=== PATIENT | female | born 1970 | race African-American/Black ===

== ENCOUNTER 2019-02-17 07:57 | Emergency (ER) | payer SELFPAY ==
--- NOTE | 2019-02-17 08:19 | ED Physician Documentation ---
Sore Throat/Dental Pain - HISTORIAN Historian: patient - HPI Chief Complaint: Sore Throat Additional Information: Patient is a 48-year-old female who presents to the ER with c/o sore throat that started 3 days ago. Discomfort has increasingly gotten worse with fever and chills. She denies any shortness of breath- denies n/v/d. Onset: days ago (3) Context: Possible Infection Associated Symptoms: fever, chills, sore throat, moderate Worsened By: nothing Further Comments: no - ROS CONST: no problems CVS/RESP: none GI/: denies: nausea, vomiting MS/SKIN/LYMPH: muscle aches NEURO/PSYCH: none - PAST HX Past History: other (HTN) Other History: none Immunizations: UTD Allergies/Adverse Reactions: Allergies Allergy/AdvReac Type Severity Reaction Status Date / Time No Known Allergies Allergy Verified 02/17/19 08:19 Home Medications: Ambulatory Orders Medication Instructions Recorded Amoxicillin 500 mg PO BID #20 capsule 02/17/19 NK 02/17/19 - SOCIAL HX Smoking History: non-smoker Alcohol Use: none Drug Use: none - FAMILY HX Family History: No ED Results Lab/Radiology - Lab Results Lab Results: Rapid strept- positive - Orders Orders: ED Orders Category Date Time Status Rapid Strep [GRP A STREP SCREEN] Stat Lab 02/17/19 Ordered Ibuprofen [Advil Soln] Med 02/17/19 08:13 Once 800 mg PO NOW ONE Sore throat Physical Exam - EXAM General Appearance: alert, mild distress Head/Neck: head nml inspection, trachea midline, cervical lymphadenopathy Eyes: eyes nml inspection, PERRL Mouth/Throat: lips nml, no drooling, tonsillar exudate, tonsillar swelling, dry membranes Ear/Nose: nml inspection Respiratory: no resp. distress, breath sounds nml CVS: heart sounds nml, tachycardia Abdomen: soft, normal bowel sounds Extremities: nml ROM Skin: warm/dry, pallor Neuro/Psych: oriented x3 Discharge Clincal Impression: Acute streptococcal pharyngitis Referrals: Shreya Coburn MD [Primary Care Provider] - 2 Days Additional Instructions: Take Amoxil 500mg by mouth twice a day until gone Increase fluid intake (no caffeine) Alternate Tylenol and Ibuprofen as needed for fever >101/discomfort Chloraseptic spray or lozenges to soothe throat Warm salt water gargles 4 times a day to decrease inflammation. Follow up with PCP in 72 hours if no improvement Condition: Good Disposition: 01 HOME, SELF-CARE Decision to Admit: NO Decision Time: 08:24
[2019-02-17] MEDS: IBUPROFEN 200MG/10ML ORAL SUSPENSION CUP PO ONE (08:25)
[2019-02-17 08:36] VITALS: BP 140/82
== END 2019-02-17 08:32 | disposition home or self-care (01) ==
LOC: EDBD 07:57 → ED 07:57
DX: J02.0 Streptococcal pharyngitis (principal)
CPT/HCPCS: 87880; 99283